=== PATIENT | male | born 1960 | race Caucasian/White ===

== ENCOUNTER 2018-11-07 11:15 | Emergency (ER) | payer OTHER ==
[~2018-11-07] VITALS: Ht 170.2 cm; Wt 79.4 kg
[2018-11-07] MEDS ORDERED: ALTACE10 MG (11:39)
[2018-11-07] MEDS ORDERED: LIPITOR20 MG (11:40)
[2018-11-07] MEDS ORDERED: TENORMIN25 MG (11:40)
== END 2018-11-07 15:32 | disposition home or self-care (01) ==
LOC: ER 11:15
DX: I95.9 Hypotension, unspecified (principal); R42 Dizziness and giddiness

== ENCOUNTER 2019-09-26 10:52 | Outpatient (CLI) | payer OTHER ==
[~2019-09-26 10:52] MED LIST: ALTACE10 MG; LIPITOR20 MG; TENORMIN25 MG
== END 2019-09-26 12:24 | disposition home or self-care (01) ==
LOC: TOM 10:52
DX: R97.20 Elevated prostate specific antigen [PSA] (principal); C61 Malignant neoplasm of prostate